=== PATIENT | male | born 1990 | race Caucasian/White ===

== ENCOUNTER 2020-04-16 08:18 | Emergency (ER) | payer OTHER, MEDICAID, SELFPAY ==
[2020-04-16 08:24] VITALS: BP 147/87; PULSE 96; RESP 16; TEMP 36.6; O2SAT 97; BMI 31.6
[2020-04-16] MEDS: LIDO 1%/SOD BICARB 8.4% (10ML) 10 ML SYRINGE INJ (08:30)
--- NOTE | 2020-04-16 08:42 | ED.WOUNDLAC ---
HPI - Wound/Laceration General Chief Complaint: Wound/Laceration Stated Complaint: hit head,injury to face Time Seen by Provider: 04/16/20 08:22 History of Present Illness HPI narrative: 29-year-old woman no significant medical history stumbled and hit the edge of his eyebrow on the edge of his bathroom counter and sustained 3 cm laceration. No loss of consciousness or other trauma appreciated. Review of Systems Review of Systems Narrative: Pertinent positive and negative findings as per HPI Remainder of review of systems is otherwise unremarkable for Constitutional: Fevers, chills, weakness ENT: No sore throat, neck pain, ear pain CV: Chest pain, palpitations, dyspnea on exertion Respiratory: Cough, wheeze, dyspnea GI: Nausea, vomiting, diarrhea, change in bowel habits, black or bloody stools : Dysuria, hematuria, flank pain Patient History Medical History Healthy adult (Acute) Substance Use Type: marijuana Exam Narrative Exam Narrative: General: Alert appropriate in no acute distress HEENT: 3 cm full-thickness laceration above the right eyebrow including the eyebrow itself. Minimal abrasion or contusion surrounding the area. No exposed bone and no nerve involvement. Pupils are equal round reactive to light accommodation. There is no involvement of the orbit itself, eyelid or eyeball Neck: Nontender to palpation Respiratory: Able to speak in full sentences, no obvious respiratory distress Skin: No obvious rashes, warm and dry Neurologic: Grossly intact no obvious asymmetries or abnormalities Psych, appropriate insight and affect, cooperative Initial Vital Signs Initial Vital Signs: Vital Signs Temperature 97.8 F 04/16/20 08:24 Pulse Rate 96 H 04/16/20 08:24 Respiratory Rate 16 04/16/20 08:24 Blood Pressure 147/87 H 04/16/20 08:24 Pulse Oximetry 97 04/16/20 08:24 Procedures Laceration Repair Right side above brow: Site: face Side (If applicable): right Size (cm): 3 Description: linear Depth: simple, single layer Local Anesthetic: lidocaine 1% and with bicarb Pre-repair: wound explored and deep structures intact Skin layer closed with: nylon Size (cm): 3-0 Number of sutures: 3 Technique: simple, interrupted Course Orders Ordered: Discontinued Medications Lidocaine/Sodium Bicarbonate (Buffered Lidocaine 10 Ml Syr) 10 ml INJ NOW ONE Stop: 04/16/20 08:26 Last Admin: 04/16/20 08:30 Dose: 10 ml Documented by: SERAFIN Vital Signs Vital signs: Vital Signs - 8 hr 04/16/20 08:24 Temperature 97.8 F Pulse Rate 96 H Respiratory Rate 16 Blood Pressure 147/87 H Pulse Oximetry 97 MDM - Wound/Laceration MDM Narrative Medical decision making narrative: Uncomplicated laceration with no additional trauma complications. Discharge Plan Departure Patient Disposition: Home Clinical Impression: Laceration Instructions: DI for Laceration Repair Activity Restrictions/Additional Instructions: Thank you for coming in today You had a fairly simple and clean laceration just above your right eyebrow. There are 3 stitches in there that will need to come out on or about April 25. If you notice redness drainage more swelling increasing pain, he need to return to the emergency room for further evaluation. You are welcome to return to the emergency room urgent care or your primary care doctor to have this 3 stitches taken out. I hope you feel better
== END 2020-04-16 08:45 | disposition home or self-care (01) ==
PROVIDERS: Emergency Provider Emergency Medicine
DX: S01.111A Laceration without foreign body of right eyelid and periocular area, initial encounter (principal); W22.03XA Walked into furniture, initial encounter
CPT/HCPCS: 12013; 99283